=== PATIENT | female | born 1995 | race African-American/Black ===

== ENCOUNTER 2016-04-18 11:33 | Day surgery (SDC) | payer MEDICAID, OTHER ==
[~2016-04-18] VITALS: Ht 30.5 cm; Wt 0.5 kg
[~2016-04-18 11:33] MED LIST: ETAN50IN5 INJ; FOLI1TAB6 PO; GABA-494 PO; LISI2.5T47 PO; METH2.5T3; PRE1T
[2016-04-18] MEDS ORDERED: LIDOCAINE 2%HCL (LOCAL ANESTH.) INJ 20ML MDV ONE (12:37)
[2016-04-18] MEDS ORDERED: ISOPROTERENOL HCL INJECTION 1 MG in D5W 5% 250 ML IV ONE (13:15)
[2016-04-18] MEDS ORDERED: MIDAZOLAM HCL 1MG/1ML-2 ML VIAL ONE (13:38)
[2016-04-18] MEDS ORDERED: fentaNYL CITRATE 100 MCG/2 ML VL ONE (13:38)
== END 2016-04-18 17:33 | disposition home or self-care (01) ==
LOC: CATH 11:33
PROVIDERS: ATTEND Specialist
DX: I50.1 Left ventricular failure, unspecified (principal); Z95.0 Presence of cardiac pacemaker
CPT/HCPCS: 93620; C1894; J1644; J3010; J7030; J2250; J7060

== ENCOUNTER → 2017-04-01 | Outpatient (CLI) | payer MEDICAID | END | disposition home or self-care (01) | LOC: PF 11:14 | PROVIDERS: ATTEND Internal Medicine Pulmonary Disease | DX: J45.20 Mild intermittent asthma, uncomplicated (principal) | CPT/HCPCS: 94060 ==